=== PATIENT | male | born 1995 | race Caucasian/White ===

== ENCOUNTER 2020-09-21 13:47 | Emergency (ER) | payer OTHER, SELFPAY ==
[2020-09-21 15:17] VITALS: BP 152/76; PULSE 103; RESP 26; TEMP 37.7; O2SAT 98; BMI 26.5
[2020-09-21 15:44] LABS: MANUAL DIFF FLAG NO
[2020-09-21 15:47] LABS: Basophils Percent Auto 0.2 % (0-2); Hematocrit 43.9 % (42-52); Imm Gran Abs Auto 0.03 X10*3/uL (0.00-0.03); Imm Gran Pct Auto 0.2 % (0.0-0.4); Lymphocytes Absolute Auto 1.3 X10*3/uL (1.2-4.9); Lymphocytes Percent Auto 9.5 % (20-40); Mean Corpuscular HGB Conc 34.2 g/dl (31.0-36.0); Mean Corpuscular Volume 87.8 fL (80-98); Mean Platelet Volume 10.2 fL (9.4-12.4); Monocytes Percent Auto 7.1 % (2-11); Neutrophils Absolute Auto 11.4 X10*3/uL (2.0-8.3); Platelet Count 227 X10*3/uL (160-400); Red Cell Distribution Width 12.3 % (11.0-16.0); White Blood Count 13.7 X10*3/uL (4.8-10.8)
[2020-09-21] MEDS: 0.9 % Sodium Chloride 1,000 ML 999 ML IV (15:49)
[2020-09-21] MEDS: Clindamycin Phosphate/D5W 600 MG/50 ML PIGGYBACK 100 MG IV (16:07)
[2020-09-21 16:10] LABS: Alanine Aminotransferase 21 U/L (0-40); Alkaline Phosphatase 40 U/L (39-117); Anion Gap 18 (12-20); Aspartate Amino Transferase 18 U/L (5-37); Bilirubin Total 1.3 mg/dL (0.0-1.0); Blood Urea Nitrogen 12 mg/dL (9-16); Calcium 9.7 mg/dL (8.4-10.2); Carbon Dioxide 25 mmol/L (22-29); Chloride 100 mmol/L (96-108); Creatinine Clr Calc Pharmacy 112.3; Estimated Glomerular Filt Rate > 60; Glucose Random 92 mg/dL (60-115); Potassium 3.8 mmol/L (3.3-5.1); Sodium 139 mmol/L (135-145); Total Protein 8.3 g/dL (6.5-8.0)
--- NOTE | 2020-09-21 16:11 | PC.NURSE ---
pt brought to tx area approx 1520 and was evaluated by pac [place] 18 ga iv est L AC labs sent and abx and fluids infusing. pt in no distress.
--- NOTE | 2020-09-21 16:15 | CT_ITS ---
EXAMINATION: CT SOFT TISSUE NECK WITH CONTRAST CLINICAL INFORMATION: Drooling. Throat pain. Peritonsillar abscess. COMPARISON: None available. TECHNIQUE: Multidetector helical imaging was performed in the axial plane following the administration of 60 mL of Omnipaque 350 intravenous contrast. Multiple axial reformats and coronal/sagittal reconstructions were created the technologist workstation for review. This CT examination was performed using dose optimization techniques as appropriate, variously including the following: *Automated exposure control. *Adjustment of mA and/or kV according to patient size (this includes techniques or standardized protocols for targeted exams where dose is matched to indication/reason for exam; i.e. extremities or head). *Use of iterative reconstruction technique. DLP: 664 mGy-cm FINDINGS: Soft tissue expansion is relatively hypoattenuating in nature of the right palatine tonsils with effacement of the right parapharyngeal adipose tissue. There is mild fat stranding in the right parapharyngeal space and along the right lateral and posterior hernandez of the pharynx. Mild phlegmonous edema of the right aspect of the soft palate. No discrete drainable fluid collection demonstrated. Small bilateral tonsilloliths. Mild to moderate narrowing of the airway at the level of the soft palate. The oral pharyngeal airway below the soft palate and laryngeal airway otherwise are widely patent. No significant cutaneous thickening or subcutaneous inflammation. No discrete fluid collection within the deep tissues of the neck. The premaxillary, retromaxillary, pterygopalatine fossa, orbital apical, left parapharyngeal, and prelaryngeal adipose tissue is maintained. Normal appearance of the parotid, submandibular, and thyroid glands. There is a 2 cm right level IIa lymph node. Otherwise, scattered subcentimeter lymph nodes bilaterally, none of which are pathologically enlarged or abnormally enhancing. Redemonstrated focal lesions or abnormal enhancement within the intrinsic tissues of the tongue or floor of mouth. Normal mucosal contours of the larynx without abnormal enhancement. Normal appearance of the hyoid bone, thyroid cartilage, or cartilaginous trachea. Mild to moderate narrowing of the The airways remains widely patent. No radiopaque foreign bodies. The atlantooccipital and atlantoaxial articulations remain well aligned. Mild reversal the normal cervical lordosis centered on C4-C5. Otherwise, there is anatomic alignment of the vertebral bodies and posterior elements. No evidence of acute fracture or subluxation of the cervical spine. The vertebral body heights are maintained. Mild degenerative disc disease at C3-C4. The remaining intervertebral disc spaces are maintained. No evidence of epidural collection. There is no prevertebral soft tissue swelling. Normal opacification of the cervical arterial and venous structures. The visualized portion of the skull base is without significant abnormalities. Mild mucosal thickening of the paranasal sinuses. Mucous retention cyst within the left maxillary sinus. The mastoid air cells and middle ear cavities are clear. No demonstrated significant periapical odontogenic disease. CT Upper Chest: The visualized lung apices and upper mediastinum are within normal limits. CT/CT soft tissue neck w con IMPRESSION: Moderate phlegmonous expansion of the right palatine tonsils with edema extending into the right aspect of the soft palate and right parapharyngeal adipose space. No demonstrated focal drainable collection. There is a 2 cm right level IIa lymph node, potentially reactive in nature. No additional cervical lymphadenopathy.
[2020-09-21 16:19] LABS: INTERNATIONAL NORM RATIO 1.2 (0.9-1.1); Prothrombin Time 14.6 SEC (10.8-13.0)
[2020-09-21 16:21] LABS: Partial Thromboplastin Time 33.4 SEC (24.1-38.0)
--- NOTE | 2020-09-21 16:25 | ED_ITS ---
HPI - General Adult General Chief complaint: Dental/Oral Stated complaint: SORE THROAT Time Seen by Provider: 09/21/20 15:28 Source: patient Mode of arrival: ambulatory Limitations: no limitations History of Present Illness HPI narrative: Patient presents to ED for sore throat and fever since last week. Patient states the pain worsening. Patient was seen yesterday at Urgent Care and negative for rapid strep. Related Data Previous Rx's Medication Instructions Recorded clindamycin HCl 300 mg PO TID #30 cap 09/21/20 naproxen 500 mg PO BID PRN #20 tab 09/21/20 Allergies Allergy/AdvReac Type Severity Reaction Status Date / Time No Known Allergies Allergy Verified 09/21/20 15:35 Review of Systems Review of Systems: Yes all other systems are reviewed and are negative Constitutional: Constitutional: Reports as per HPI, Reports no additional constitutional complaints and Reports fever(s) Eyes: Eyes: Reports as per HPI and Reports no additional eye complaints ENT: Reports system reviewed and no additional complaints, except as documented and Reports as per HPI Comments: Sore throat. Slight drooling Cardiovascular: Cardiovascular: Reports as per HPI and Reports no additional cardiovascular complaints Respiratory: Respiratory: Reports as per HPI and Reports no additional respiratory complaints Gastrointestinal: Gastrointestinal: Reports as per HPI and Reports no additional gastrointestinal complaints Genitourinary: Genitourinary: Reports no additional male genitourinary complaints and Reports as per HPI Musculoskeletal: Musculoskeletal: Reports no additional musculoskeletal complaints and Reports as per HPI Neurologic: Reports system reviewed and no additional complaints, except as documented and Reports as per HPI Psychiatric: Psychiatric: Reports no additional psychiatric complaints and Reports as per HPI [facility] Social History Social History Advance Directives: No Advance Directives Information Provided: Yes Physical Exam Vital Signs: Vital Signs: Last Vital Signs Temp 100 F 09/21/20 15:17 Pulse 103 H 09/21/20 15:17 Resp 26 H 09/21/20 15:17 BP 152/76 H 09/21/20 15:17 Pulse Ox 98 09/21/20 15:17 Body Mass Index 26.5 Const: General: cooperative, healthy appearing, comfortable, no acute d istress, well developed and alert HENMT: Other: Right tonsil seems swollen and soft palate swollen. Uvula is not swollen. negative for any exudates Head: Yes normal to inspection, Yes No palpable skull fracture present, Yes normocephalic, Yes atraumatic, Yes abrasion, No Tapia's sign, No contusion, No cranial bruits, No hematoma, No laceration, No occipital foramen tenderness, No palpable skull fracture, No raccoon eyes, No scalp lesion, No scalp tenderness, No Temporal artery tenderness present and No periorbital ecchymosis Throat: Yes abnormal tonsil (Right tonsil swollen) Eyes: General: appearance normal, both eyes and all related structures Neck: Neck: Yes normal visual inspection, Yes full ROM, Yes no lymphadenopathy, Yes no meningeal signs, Yes trachea midline, Yes supple and No tender Chest: Chest palpation & inspection: normal inspection of the chest and normal palpation of entire chest wall Resp: Effort & Inspection: normal respiratory effort and able to speak in complete sentences Auscultation: clear to auscultation bilaterally Cardio: Jugular venous distension: no JVD Heart sounds: S1 normal heart sound present and S2 normal heart sound present GI: Inspection: Yes normal to inspection and No abdominal wall ecchymosis Palpation (GI): Soft to palpation, not firm, nontender, no guarding and not rigid : General: No CVA tenderness and Yes no CVA tenderness Back/Spine/Pelvis: Back: no CVA tenderness, No CVA tenderness and No back tenderness Skin: General skin exam: no rashes or lesions noted and elasticity normal Neuro: General: patient oriented x3, no meningeal signs and CN's II-XI intact bilaterally Cranial nerves: Yes CN's II-XII intact bilaterally Extrem: General: Yes normal to inspection and Yes full ROM Psych: Appearance: grossly normal, well kempt and not disheveled Course Course Course Narrative: Patient speaking in full sentences and not in any respiratory distress. Patient will have basic labs and given clindamycin and Decadron. Patient has allergic reaction to penicillin. Patient will be sent for chest CT to rule out retro for pharyngeal abscess versus peritonsillar abscess. Reevaluation(s) Reevaluation #1: Function came back fine. Patient to be sent for C to the neck to rule out peritonsillar abscess versus retropharyngeal abscess. Time: 15:40 Reevaluation #2: Patient's neck CT negative for collection of abscess, but shows significant expansion of right soft palate, and palatine tonsils. Will call [facility] for possible transfer. Patient's rapid strep negative. Patient's COVID swab negative Time: 17:55 Reevaluation #3: Spoke with Dr. prieto of [facility]. He was informed of patient's history, physical exam, labs, and findings of CT scan of soft tissue neck. He states patient does not need to be admitted. He also states 1 dose of Decadron is suffice. He recommends patient be discharged with clindamycin and call tomorrow morning with his clinic for follow-up. Dr. Prieto also spoke with Dr. Kaufman. Patient presently not in any respiratory distress. Patient vital signs are stable on monitor improved with 02 sat of 98% and HR rate of 95. Lungs clear. Negative for stridor. Patient states he feels better after meds. Patient inform Dr. prieto the ENT of [facility] would like him to call him ( clinic) in the morning for immediate follow-up. Time: 18:33 Medical Decision Making MDM Narrative Medical decision making narrative: Peritonsillar cellulitis Lab Data Result diagrams: 09/21/20 15:40 09/21/20 15:40 Labs: Lab Results 09/21/20 09/21/20 09/21/20 Range/Units 15:40 15:40 16:00 WBC 13.7 H (4.8-10.8) X10*3/uL RBC 5.00 (4.60-5.80) X10*6/uL Hgb 15.0 (14.0-18.0) g/dl Hct 43.9 (42-52) % MCV 87.8 (80-98) fL MCH 30.0 (27.0-33.0) pg MCHC 34.2 (31.0-36.0) g/dl RDW 12.3 (11.0-16.0) % Plt Count 227 (160-400) X10*3/uL MPV 10.2 (9.4-12.4) fL Immature Gran % (Auto) 0.2 (0.0-0.4) % Neut % (Auto) 83.0 H (45-73) % Lymph % (Auto) 9.5 L (20-40) % Upton % (Auto) 7.1 (2-11) % Eos % (Auto) 0.0 (0-4) % Baso % (Auto) 0.2 (0-2) % Lymph # (Auto) 1.3 (1.2-4.9) X10*3/uL Upton # (Auto) 1.0 (0.1-1.2) X10*3/uL Eos # (Auto) 0.0 (0.0-0.4) X10*3/uL Baso # (Auto) 0.0 (0.0-0.2) X10*3/uL Abs Immat Gran (auto) 0.03 (0.00-0.03) X10*3/uL Absolute Neuts (auto) 11.4 H (2.0-8.3) X10*3/uL Absolute Nucleated RBC 0.000 (0.0-0.012) X10*3/uL Nucleated RBC % (auto) 0.0 (0.0-0.2) /100WBC PT 14.6 H (10.8-13.0) SEC INR 1.2 H (0.9-1.1) APTT 33.4 (24.1-38.0) SEC Sodium 139 (135-145) mmol/L Potassium 3.8 (3.3-5.1) mmol/L Chloride 100 (96-108) mmol/L Carbon Dioxide 25 (22-29) mmol/L Anion Gap 18 (12-20) BUN 12 (9-16) mg/dL Creatinine 1.02 (0.5-1.4) mg/dL Estim Creat Clear Calc 112.3 Estimated GFR > 60 Random Glucose 92 (60-115) mg/dL Lactic Acid (0.5-2.0) mmol/L Calcium 9.7 (8.4-10.2) mg/dL Total Bilirubin 1.3 H (0.0-1.0) mg/dL AST 18 (5-37) U/L ALT 21 (0-40) U/L Alkaline Phosphatase 40 (39-117) U/L Total Protein 8.3 H (6.5-8.0) g/dL Albumin 5.0 (3.5-5.0) g/dL COVID-19 ([facility]) (Negative) COVID-19 Clin Com 09/21/20 09/21/20 Range/Units 16:00 18:17 WBC (4.8-10.8) X10*3/uL RBC (4.60-5.80) X10*6/uL Hgb (14.0-18.0) g/dl Hct (42-52) % MCV (80-98) fL MCH (27.0-33.0) pg MCHC (31.0-36.0) g/dl RDW (11.0-16.0) % Plt Count (160-400) X10*3/uL MPV (9.4-12.4) fL Immature Gran % (Auto) (0.0-0.4) % Neut % (Auto) (45-73) % Lymph % (Auto) (20-40) % Upton % (Auto) (2-11) % Eos % (Auto) (0-4) % Baso % (Auto) (0-2) % Lymph # (Auto) (1.2-4.9) X10*3/uL Upton # (Auto) (0.1-1.2) X10*3/uL Eos # (Auto) (0.0-0.4) X10*3/uL Baso # (Auto) (0.0-0.2) X10*3/uL Abs Immat Gran (auto) (0.00-0.03) X10*3/uL Absolute Neuts (auto) (2.0-8.3) X10*3/uL Absolute Nucleated RBC (0.0-0.012) X10*3/uL Nucleated RBC % (auto) (0.0-0.2) /100WBC PT (10.8-13.0) SEC INR (0.9-1.1) APTT (24.1-38.0) SEC Sodium (135-145) mmol/L Potassium (3.3-5.1) mmol/L Chloride (96-108) mmol/L Carbon Dioxide (22-29) mmol/L Anion Gap (12-20) BUN (9-16) mg/dL Creatinine (0.5-1.4) mg/dL Estim Creat Clear Calc Estimated GFR Random Glucose (60-115) mg/dL Lactic Acid 1.7 (0.5-2.0) mmol/L Calcium (8.4-10.2) mg/dL Total Bilirubin (0.0-1.0) mg/dL AST (5-37) U/L ALT (0-40) U/L Alkaline Phosphatase (39-117) U/L Total Protein (6.5-8.0) g/dL Albumin (3.5-5.0) g/dL COVID-19 ([facility]) Negative (Negative) COVID-19 Clin Com See Note Discharge Plan Discharge Clinical Impression: Peritonsillar cellulitis Patient Disposition: Home, Self-Care Instructions: Cellulitis (ED) Additional Instructions: Return to the ED for shortness of breath, sensation of throat closing, excessive drooling, wheezing, inability to tolerate solid food/liquid, or any other concerning symptoms. Prescriptions: New clindamycin HCl 300 mg capsule 300 mg PO TID Qty: 30 RF: 0 naproxen 500 mg tablet 500 mg PO BID PRN (Reason: pain) Qty: 20 RF: 0 Referrals: Wilbur Prieto MD [Physician] - 2 days (Peritonsillar cellulitis) Stand Alone Forms: Work/School Release Print Language: Zambian
[2020-09-21 16:33] LABS: Lactic Acid 1.7 mmol/L (0.5-2.0)
[2020-09-21] MEDS: iohexoL 350 MG/ML 100 ML INFUS..BTL IV (16:48)
--- NOTE | 2020-09-21 17:12 | PC.NURSE ---
pt returned from ct scan, strep swab sent. [facility].
[2020-09-21] MEDS: Lidocaine HCl Viscous 2 % 15 ML SOLUTION MUCOUS MEM (17:22)
[2020-09-21] MEDS: cefTRIAXone sodium 1 GM in 0.9 % Sodium Chloride 50 ML IV (17:55)
[2020-09-21 19:20] LABS: COVID-19 Test Negative (Negative)
== END 2020-09-21 19:00 | disposition home or self-care (01) ==
PROVIDERS: Physician Assistant; Emergency Provider Emergency Medicine Emergency Medical Services
DX: J36 Peritonsillar abscess (principal); Z20.822 Contact with and (suspected) exposure to COVID-19
CPT/HCPCS: 36415; 70491; 80053; 83605; 85025; 85610; 85730; 87040; 87071; 87635; 87880; 96361; 96365; 96367; 96375; 99283; 99284; J0696; J1100; Q9967